=== PATIENT | male | born 1970 | race African-American/Black ===

== ENCOUNTER 2020-11-14 14:41 | Emergency (ER) | payer OTHER ==
[2020-11-14 14:47] VITALS: TEMP 98.1
[2020-11-14] MEDS ORDERED: ACET/COD 300 MG/30 MG STARTER PACK 6 TAB BTL PO STA (14:55)
--- NOTE | 2020-11-14 14:57 | ED ---
Lower Extremity Injury HPI - General Chief Complaint: Extremity Injury, Lower Stated Complaint: Left foot pain Time Seen by Provider: 11/14/20 14:50 Source: patient Mode of arrival: ambulatory Limitations: no limitations - History of Present Illness Initial Comments: 50-year-old male presenting today for chief complaint of left foot pain chronically. Patient states that he had a previous Lisfranc fracture diagnosed in January 2019 he states it occurred when he rolled his foot while he was in [facility]. Patient states that he was told he needed to follow-up as this would cause chronic injuries the patient states he never did he states his foot hurts every day especially with sitting for long periods of time patient states those were in today seeking to the ER for pain management he denies any new injuries redness swelling of the foot he does have loss of sensation or differences in characteristic of the pain. Patient denies any calf pain chest pain short of breath he denies fevers remaining review of systems negative upon arrival patient appears well and nontoxic distress he is weightbearing and ambulating. - Related Data Allergies Allergy/AdvReac Type Severity Reaction Status Date / Time No Known Allergies Allergy Verified 11/14/20 15:10 Review of Systems ROS Statement: Those systems with pertinent positive or pertinent negative responses have been documented in the HPI. ROS Other: All systems not noted in ROS Statement are negative. Past Medical History Past Medical History: Hyperlipidemia History of Any Multi-Drug Resistant Organisms: None Reported Past Surgical History: Tonsillectomy Past Psychological History: No Psychological Hx Reported Smoking Status: Former smoker Past Alcohol Use History: Occasional Past Drug Use History: Marijuana General Exam - General Exam Comments Initial Comments: General: The patient is awake and alert, in no distress Eye: +3 mm pupils are equal, round and reactive to light, extra-ocular mov ements are intact. No nystagmus. There is normal conjunctiva bilaterally. No signs of icterus. Ears, nose, mouth and throat: There are moist mucous membranes and no oral lesions. Neck: The neck is supple, there is no tenderness or JVD. Musculoskeletal: upon examination of the feet bilaterally there is no soft ti ssue swelling. Patient has pain over the forefoot of the left foot. There is noerythema. patient has full rom of digits of foot. Nstrength 5/5. Sensation intact. No calf pain DP pulses equal bilaterally 2+. Neurological: A&O x 3. CN II-XII intact grossly, There are no obvious motor or sensory deficits. Coordination appears grossly intact. Speech is normal. Skin: Skin is warm and dry and no rashes or lesions are noted. Psychiatric: Cooperative, appropriate mood & affect, normal judgment. Limitations: no limitations Course Vital Signs 11/14/20 11/14/20 14:45 15:09 Temperature 98.1 F Pulse Rate 92 95 Respiratory 16 18 Rate Blood Pressure 168/112 143/93 O2 Sat by Pulse 97 98 Oximetry Medical Decision Making - Medical Decision Making Pt has paperwork with dx of robyn from 2019. never followed up. has been weight bearing for the psat 2 years. chronic pain, no new changes, no redness, no swelling. pt denies new injury. pt pain managed and [facility] Samuel agreeable to care plan. Disposition Clinical Impression: Chronic pain in left foot, Lisfranc fracture Disposition: HOME SELF-CARE Condition: Good Instructions (If sedation given, give patient instructions): Chronic Pain (ED) Additional Instructions: Please use medication as discussed. Please follow-up with family doctor in the next 2 days. Please return to emergency room if the symptoms increase or worsen or for any other concerns. Is patient prescribed a controlled substance at d/c from ED?: No Referrals: Joya Cardenas MD [Primary Care Provider] - 1-2 days Dandre Galvin MD [STAFF PHYSICIAN] - 1-2 days Time of Disposition: 14:56
[2020-11-14 15:13] VITALS: BP 143/93; PULSE 95; RESP 18
== END 2020-11-14 15:21 | disposition home or self-care (01) ==
LOC: MERGE 14:41 → EC 14:41
DX: S92.302A Fracture of unspecified metatarsal bone(s), left foot, initial encounter for closed fracture (principal); G89.29 Other chronic pain; M79.672 Pain in left foot; Z87.891 Personal history of nicotine dependence; X58.XXXA Exposure to other specified factors, initial encounter
CPT/HCPCS: 99283